=== PATIENT | female | born 1935 | race African-American/Black ===

== ENCOUNTER 2022-07-26 11:22 | Inpatient (IN) | payer MEDICARE ==
[~2022-07-26] VITALS: Ht 160 cm; Wt 61.0 kg
[2022-07-26] MEDS ORDERED: IOHEXOL 350 MG/ML 100 ML VIAL ONE (11:49)
[2022-07-26] MEDS ORDERED: SODIUM CHLORIDE 0.9% 100 ML ONE (11:49)
[2022-07-26 11:58] LABS: BASOPHILS % (AUTO) 0.3 % (0.0-2.0); EOSINOPHILS % (AUTO) 0.1 % (1.0-6.0); HEMATOCRIT 35.2 % (36-46); HEMOGLOBIN 11.9 g/dL (12.0-16.0); LYMPHOCYTES # (AUTO) 0.5 K/uL (1.0-4.8); LYMPHOCYTES % (AUTO) 7.2 % (22.0-44.0); MEAN CORPUSCULAR HEMOGLOBIN 31.9 pg (26.0-34.0); MEAN CORPUSCULAR HGB CONC 33.7 G/dL (31.0-37.0); MEAN CORPUSCULAR VOLUME 95 fL (80-100); MONOCYTES # (AUTO) 0.2 K/uL (0.1-1.0); MONOCYTES % (AUTO) 2.5 % (2.0-9.0); NEUTROPHILS # (AUTO) 6.3 K/uL (1.8-7.7); PLATELET COUNT (AUTO) 236 K/uL (150-450); RED BLOOD CELL COUNT(AUTO) 3.72 MIL/uL (4.00-5.20); RED CELL DISTRIBUTION WIDTH 14.1 % (11.5-14.5)
[2022-07-26 12:01] LABS: NEUTROPHILS % (AUTO) 89.9 % (40.0-70.0)
[2022-07-26 12:10] LABS: CALCIUM, TOTAL 9.6 mg/dL (8.8-10.5); CREATININE 0.94 mg/dL (0.60-1.30); POTASSIUM 3.7 mmol/L (3.5-5.1); PROTHROMBIN TIME 10.5 SEC (9.4-11.6)
[2022-07-26 12:16] LABS: ALBUMIN 3.8 g/dL (3.4-5.0); BILIRUBIN,TOTAL 0.3 mg/dL (0.1-1.0); TOTAL PROTEIN, SERUM 8.6 g/dL (6.4-8.2)
[2022-07-26] MEDS ORDERED: ASPIRIN 81 MG CHEWABLE TABLET PO ONE ×2 (12:45→14:30)
[2022-07-26 13:25] LABS: APPEARANCE,URINE CLEAR (CLEAR); BILIRUBIN,URINE NEGATIVE (NEGATIVE); GLUCOSE, URINE (UA) NEGATIVE (NEGATIVE); LEUKOCYTE ESTERASE ,URINE NEGATIVE (NEGATIVE); NITRATE,URINE NEGATIVE (NEGATIVE); OCCULT BLOOD,URINE NEGATIVE (NEGATIVE); PH,URINE 7.5 (5.0-8.0); PROTEIN,URINE TRACE mg/dL (NEGATIVE); SPECIFIC GRAVITIY, URINE 1.028 (1.003-1.030); UROBILINOGEN,URINE <=1.0 mg/dL (<=1.0)
[2022-07-26 13:52] LABS: AMPHET/METH SCREEN,URINE NEGATIVE (NEGATIVE); BARBITURATE SCREEN, URINE NEGATIVE (NEGATIVE); BENZODIAZEPINES SCREEN,URINE NEGATIVE (NEGATIVE); CANNABINOID SCREEN,URINE NEGATIVE (NEGATIVE); COCAINE SCREEN,URINE NEGATIVE (NEGATIVE); METHADONE SCREEN, URINE NEGATIVE (NEGATIVE); OPIATE SCREEN,URINE NEGATIVE (NEGATIVE); PHENCYCLIDINE SCREEN,URINE NEGATIVE (NEGATIVE)
[2022-07-26 13:56] LABS: BACTERIA,URINE None Seen /HPF (None Seen); RBC,URINE 0-2 /HPF (0-2); WBC,URINE None Seen /HPF (0-5)
[2022-07-26] MEDS ORDERED: ONDANSETRON HCL 4 MG/2 ML VIAL IVP PRN (14:30)
[2022-07-26] MEDS ORDERED: ACETAMINOPHEN 650 MG/ISO-OSM 65 ML IV ONE (14:30)
[2022-07-26] MEDS ORDERED: ACETAMINOPHEN 325 MG TABLET PO PRN (14:30)
[2022-07-26] MEDS ORDERED: MAGNESIUM HYDROXIDE SUSPENSION 30 ML UDCUP PO PRN (14:30)
[2022-07-26] MEDS ORDERED: ZOLPIDEM TARTRATE 5 MG TABLET PO PRN (14:30)
[2022-07-26] MEDS ORDERED: BISACODYL 10 MG RECTAL RECTAL SUPPOSITORY PR PRN (14:30)
[2022-07-26] MEDS ORDERED: ASPIRIN 300 MG RECTAL SUPPOSITORY PR ONE (15:00)
[2022-07-26] MEDS: LABETALOL HCL 5 MG/ML 20 ML VIAL IVP PRN ×2 (15:31→23:52)
[2022-07-26] MEDS: PIPERACILLIN SODIUM/TAZOBACTAM 2.25 GM in DEXTROSE 5%-WATER 50 ML IV SCH ×2 (16:54→21:54)
[2022-07-26] MEDS: HEPARIN SODIUM,PORCINE 5,000 UNITS/ML VIAL SQ SCH ×2 (17:01→23:47)
[2022-07-26] MEDS: NiCARDipine HCL 25 MG in SODIUM CHLORIDE 0.9% 240 ML IV PRN (20:19)
[2022-07-26] MEDS: ATORVASTATIN CALCIUM 20 MG TABLET PO SCH (21:00)
[2022-07-26] MEDS: DOCUSATE SODIUM 100 MG CAPSULE PO SCH (21:00)
[2022-07-26] MEDS ORDERED: ATORVASTATIN CALCIUM 20 MG TABLET PO SCH (21:00)
[2022-07-27] MEDS: NiCARDipine HCL 25 MG in SODIUM CHLORIDE 0.9% 240 ML IV PRN ×4 (00:41→16:06)
[2022-07-27] MEDS: PIPERACILLIN SODIUM/TAZOBACTAM 2.25 GM in DEXTROSE 5%-WATER 50 ML IV SCH ×4 (03:59→21:35)
[2022-07-27 07:30] LABS: COVID AG,FIA SOURCE NASAL SWAB
[2022-07-27] MEDS: HEPARIN SODIUM,PORCINE 5,000 UNITS/ML VIAL SQ SCH ×3 (07:37→23:50)
[2022-07-27] MEDS: ASPIRIN 81 MG CHEWABLE TABLET PO SCH (08:01)
[2022-07-27] MEDS: DOCUSATE SODIUM 100 MG CAPSULE PO SCH ×2 (08:01→20:16)
[2022-07-27] MEDS: PANTOPRAZOLE SODIUM 40 MG DR TABLET PO SCH (08:02)
[2022-07-27 08:40] LABS: BASOPHILS % (AUTO) 0.5 % (0.0-2.0); EOSINOPHILS % (AUTO) 0.1 % (1.0-6.0); HEMATOCRIT 35.1 % (36-46); LYMPHOCYTES # (AUTO) 1.2 K/uL (1.0-4.8); LYMPHOCYTES % (AUTO) 12.4 % (22.0-44.0); MEAN CORPUSCULAR HEMOGLOBIN 32.2 pg (26.0-34.0); MEAN CORPUSCULAR HGB CONC 34.1 G/dL (31.0-37.0); MEAN CORPUSCULAR VOLUME 94 fL (80-100); MONOCYTES # (AUTO) 0.6 K/uL (0.1-1.0); NEUTROPHILS # (AUTO) 7.9 K/uL (1.8-7.7); PLATELET COUNT (AUTO) 246 K/uL (150-450); RED BLOOD CELL COUNT(AUTO) 3.72 MIL/uL (4.00-5.20); RED CELL DISTRIBUTION WIDTH 14.2 % (11.5-14.5)
[2022-07-27] MEDS ORDERED: ATORVASTATIN CALCIUM 40 MG TABLET PO SCH ×2 (09:00)
[2022-07-27 09:10] LABS: CALCIUM, TOTAL 9.5 mg/dL (8.8-10.5); CHOL/HDL RATIO 3.2 (3.9-5.7); CREATININE 1.33 mg/dL (0.60-1.30); POTASSIUM 3.6 mmol/L (3.5-5.1); THYROID STIMULATING HORMONE 2.56 uIU/mL (0.36-3.74)
[2022-07-27] MEDS: ACETAMINOPHEN 650 MG RECTAL SUPPOSITORY PR PRN ×2 (11:15→20:13)
[2022-07-27] MEDS ORDERED: DEXTROSE 5%-0.45% SODIUM CHL 1,000 ML IV ONE (18:30)
[2022-07-27] MEDS: ATORVASTATIN CALCIUM 20 MG TABLET PO SCH (20:16)
[2022-07-27] MEDS: MORPHINE SULFATE 2 MG/ML SYRINGE IVP PRN (21:35)
[2022-07-28] MEDS: PIPERACILLIN SODIUM/TAZOBACTAM 2.25 GM in DEXTROSE 5%-WATER 50 ML IV SCH ×4 (03:13→21:46)
[2022-07-28] MEDS: LABETALOL HCL 5 MG/ML 20 ML VIAL IVP PRN (06:58)
[2022-07-28] MEDS: ASPIRIN 81 MG CHEWABLE TABLET PO SCH (08:46)
[2022-07-28] MEDS: DOCUSATE SODIUM 100 MG CAPSULE PO SCH ×2 (08:46→19:06)
[2022-07-28] MEDS: PANTOPRAZOLE SODIUM 40 MG DR TABLET PO SCH (08:46)
[2022-07-28] MEDS: HEPARIN SODIUM,PORCINE 5,000 UNITS/ML VIAL SQ SCH ×3 (08:56→23:51)
[2022-07-28] MEDS: NiCARDipine HCL 25 MG in SODIUM CHLORIDE 0.9% 240 ML IV PRN ×3 (15:42→23:51)
[2022-07-28] MEDS: ATORVASTATIN CALCIUM 20 MG TABLET PO SCH (19:06)
[2022-07-28 23:15] VITALS: BP 142/62
[2022-07-28] MEDS ORDERED: SODIUM CHLORIDE 0.9% 250 ML IV ONE (23:49)
[2022-07-29 04:00] VITALS: BP 155/68
[2022-07-29] MEDS: NiCARDipine HCL 25 MG in SODIUM CHLORIDE 0.9% 240 ML IV PRN ×2 (04:29→09:15)
[2022-07-29] MEDS: PIPERACILLIN SODIUM/TAZOBACTAM 2.25 GM in DEXTROSE 5%-WATER 50 ML IV SCH ×4 (04:29→21:24)
[2022-07-29 06:52] LABS: ALANINE AMINOTRANSFERASE 47 U/L (12-78); ALBUMIN 2.9 g/dL (3.4-5.0); ALKALINE PHOSPHATASE 72 U/L (46-116); ANION GAP 10 mmol/L (8-16); ASPARTATE AMINOTRANSFERASE 140 U/L (15-37); BILIRUBIN,TOTAL 0.5 mg/dL (0.1-1.0); CALCIUM, TOTAL 8.9 mg/dL (8.8-10.5); CARBON DIOXIDE 23 mmol/L (22-29); CHLORIDE 109 mmol/L (98-107); CREATININE 0.96 mg/dL (0.60-1.30); GLOMERULAR FILTR. RATE CALC > 60 mL/min (>60); GLUCOSE,RANDOM 91 mg/dL (70-110); SODIUM SERUM 142 mmol/L (136-145); TOTAL PROTEIN, SERUM 7.1 g/dL (6.4-8.2); UREA NITROGEN, BLOOD 21 mg/dL (7-18)
[2022-07-29 07:00] LABS: BASOPHILS % (AUTO) 0.3 % (0.0-2.0); EOSINOPHILS % (AUTO) 0.2 % (1.0-6.0); HEMATOCRIT 32.9 % (36-46); LYMPHOCYTES # (AUTO) 1.1 K/uL (1.0-4.8); LYMPHOCYTES % (AUTO) 10.9 % (22.0-44.0); MEAN CORPUSCULAR HEMOGLOBIN 31.9 pg (26.0-34.0); MEAN CORPUSCULAR HGB CONC 33.4 G/dL (31.0-37.0); MEAN CORPUSCULAR VOLUME 96 fL (80-100); MONOCYTES # (AUTO) 0.7 K/uL (0.1-1.0); MONOCYTES % (AUTO) 6.9 % (2.0-9.0); NEUTROPHILS # (AUTO) 8.3 K/uL (1.8-7.7); NEUTROPHILS % (AUTO) 81.7 % (40.0-70.0); PLATELET COUNT (AUTO) 237 K/uL (150-450); RED BLOOD CELL COUNT(AUTO) 3.44 MIL/uL (4.00-5.20); RED CELL DISTRIBUTION WIDTH 14.2 % (11.5-14.5)
[2022-07-29 07:24] LABS: POTASSIUM 2.7 mmol/L (3.5-5.1)
[2022-07-29 08:00] VITALS: BP 164/72
[2022-07-29] MEDS ORDERED: POTASSIUM CHLORIDE 20 MEQ ER TABLET PO PRN (08:00)
[2022-07-29] MEDS: HEPARIN SODIUM,PORCINE 5,000 UNITS/ML VIAL SQ SCH ×3 (08:04→23:53)
[2022-07-29] MEDS: POTASSIUM CHL 10 MEQ/WATER 50 ML IV PRN ×4 (08:05→13:55)
[2022-07-29] MEDS: PANTOPRAZOLE SODIUM 40 MG/VIAL IVP SCH (09:14)
[2022-07-29] MEDS: LABETALOL HCL 5 MG/ML 20 ML VIAL IVP PRN (09:15)
[2022-07-29] MEDS: ASPIRIN 81 MG CHEWABLE TABLET PO SCH (10:18)
[2022-07-29] MEDS: AmLODIPine BESYLATE 10 MG TABLET PO SCH (10:18)
[2022-07-29] MEDS: DOCUSATE SODIUM 100 MG CAPSULE PO SCH ×2 (10:18→20:51)
[2022-07-29] MEDS: HydrALAZINE HCL 20 MG/ML VIAL IVP PRN ×2 (10:19→17:55)
[2022-07-29] MEDS: CARVEDILOL 3.125 MG TABLET PO SCH ×2 (10:19→20:51)
[2022-07-29 12:00] VITALS: BP 161/89
[2022-07-29 16:00] VITALS: BP 168/66
[2022-07-29] MEDS ORDERED: POTASSIUM CHLORIDE 10% 40 MEQ/30 ML LIQUID UDCUP NG PRN (17:15)
[2022-07-29 20:00] VITALS: BP 147/40
[2022-07-29] MEDS: ATORVASTATIN CALCIUM 20 MG TABLET PO SCH (20:51)
[2022-07-29] MEDS ORDERED: SODIUM CHLORIDE 0.9% 250 ML IV ONE (23:19)
[2022-07-30] VITALS: BP 150/62
[2022-07-30 04:00] VITALS: BP 173/57
[2022-07-30] MEDS: PIPERACILLIN SODIUM/TAZOBACTAM 2.25 GM in DEXTROSE 5%-WATER 50 ML IV SCH ×4 (04:07→22:26)
[2022-07-30] MEDS: HydrALAZINE HCL 20 MG/ML VIAL IVP PRN ×3 (04:07→14:17)
[2022-07-30 05:53] LABS: BASOPHILS % (AUTO) 0.4 % (0.0-2.0); EOSINOPHILS % (AUTO) 0.4 % (1.0-6.0); HEMATOCRIT 33.2 % (36-46); LYMPHOCYTES # (AUTO) 1.6 K/uL (1.0-4.8); LYMPHOCYTES % (AUTO) 12.5 % (22.0-44.0); MEAN CORPUSCULAR HEMOGLOBIN 31.6 pg (26.0-34.0); MEAN CORPUSCULAR HGB CONC 33.1 G/dL (31.0-37.0); MEAN CORPUSCULAR VOLUME 96 fL (80-100); MONOCYTES # (AUTO) 0.8 K/uL (0.1-1.0); MONOCYTES % (AUTO) 6.3 % (2.0-9.0); NEUTROPHILS # (AUTO) 10.2 K/uL (1.8-7.7); NEUTROPHILS % (AUTO) 80.4 % (40.0-70.0); PLATELET COUNT (AUTO) 244 K/uL (150-450); RED BLOOD CELL COUNT(AUTO) 3.47 MIL/uL (4.00-5.20); RED CELL DISTRIBUTION WIDTH 14.2 % (11.5-14.5)
[2022-07-30 05:57] LABS: CALCIUM, TOTAL 9.1 mg/dL (8.8-10.5); CREATININE 1.05 mg/dL (0.60-1.30); MAGNESIUM 2.5 mg/dL (1.80-2.40); PHOSPHORUS 2.3 mg/dL (2.5-4.9); POTASSIUM 3.6 mmol/L (3.5-5.1)
[2022-07-30 08:00] VITALS: BP 171/65
[2022-07-30] MEDS: ASPIRIN 81 MG CHEWABLE TABLET PO SCH (08:17)
[2022-07-30] MEDS: AmLODIPine BESYLATE 10 MG TABLET PO SCH (08:18)
[2022-07-30] MEDS: PANTOPRAZOLE SODIUM 40 MG/VIAL IVP SCH (08:18)
[2022-07-30] MEDS: CARVEDILOL 3.125 MG TABLET PO SCH ×2 (08:18→20:27)
[2022-07-30] MEDS: HEPARIN SODIUM,PORCINE 5,000 UNITS/ML VIAL SQ SCH ×3 (08:18→23:51)
[2022-07-30] MEDS: DOCUSATE SODIUM 100 MG CAPSULE PO SCH ×2 (08:18→20:27)
[2022-07-30 12:00] VITALS: BP 169/68
[2022-07-30] MEDS: LABETALOL HCL 5 MG/ML 20 ML VIAL IVP PRN (15:27)
[2022-07-30 16:00] VITALS: BP 173/65
[2022-07-30] MEDS: NiCARDipine HCL 25 MG in SODIUM CHLORIDE 0.9% 240 ML IV PRN ×3 (16:22→23:52)
[2022-07-30 20:00] VITALS: BP 143/71
[2022-07-30] MEDS: ATORVASTATIN CALCIUM 20 MG TABLET PO SCH (20:27)
[2022-07-30] MEDS ORDERED: AmLODIPine BESYLATE 5 MG TABLET PO SCH (21:00)
[2022-07-31] VITALS: BP 146/79
[2022-07-31 04:00] VITALS: BP 133/61
[2022-07-31] MEDS: PIPERACILLIN SODIUM/TAZOBACTAM 2.25 GM in DEXTROSE 5%-WATER 50 ML IV SCH ×4 (04:31→21:25)
[2022-07-31] MEDS: NiCARDipine HCL 25 MG in SODIUM CHLORIDE 0.9% 240 ML IV PRN ×4 (04:33→22:56)
[2022-07-31 06:17] LABS: BASOPHILS % (AUTO) 0.2 % (0.0-2.0); EOSINOPHILS % (AUTO) 0.3 % (1.0-6.0); HEMATOCRIT 32.1 % (36-46); HEMOGLOBIN 10.6 g/dL (12.0-16.0); LYMPHOCYTES # (AUTO) 1.1 K/uL (1.0-4.8); LYMPHOCYTES % (AUTO) 10.2 % (22.0-44.0); MEAN CORPUSCULAR HEMOGLOBIN 31.8 pg (26.0-34.0); MEAN CORPUSCULAR HGB CONC 33.1 G/dL (31.0-37.0); MEAN CORPUSCULAR VOLUME 96 fL (80-100); MONOCYTES # (AUTO) 0.7 K/uL (0.1-1.0); MONOCYTES % (AUTO) 6.6 % (2.0-9.0); NEUTROPHILS # (AUTO) 9.2 K/uL (1.8-7.7); NEUTROPHILS % (AUTO) 82.7 % (40.0-70.0); PLATELET COUNT (AUTO) 263 K/uL (150-450); RED BLOOD CELL COUNT(AUTO) 3.35 MIL/uL (4.00-5.20); RED CELL DISTRIBUTION WIDTH 14.5 % (11.5-14.5)
[2022-07-31 06:32] LABS: ALBUMIN 2.6 g/dL (3.4-5.0); BILIRUBIN,TOTAL 0.4 mg/dL (0.1-1.0); CALCIUM, TOTAL 9.1 mg/dL (8.8-10.5); CREATININE 1.18 mg/dL (0.60-1.30); POTASSIUM 3.4 mmol/L (3.5-5.1)
[2022-07-31 08:00] VITALS: BP 154/65
[2022-07-31] MEDS: AmLODIPine BESYLATE 5 MG TABLET PO SCH ×2 (08:14→20:26)
[2022-07-31] MEDS: PANTOPRAZOLE SODIUM 40 MG/VIAL IVP SCH (08:14)
[2022-07-31] MEDS: DOCUSATE SODIUM 100 MG CAPSULE PO SCH ×2 (08:14→20:23)
[2022-07-31] MEDS: ASPIRIN 81 MG CHEWABLE TABLET PO SCH (08:14)
[2022-07-31] MEDS: HEPARIN SODIUM,PORCINE 5,000 UNITS/ML VIAL SQ SCH ×2 (08:14→15:29)
[2022-07-31] MEDS: CARVEDILOL 3.125 MG TABLET PO SCH ×2 (08:14→20:23)
[2022-07-31 12:00] VITALS: BP 150/65
[2022-07-31] MEDS ORDERED: DEXTROSE 5%-WATER 500 ML IV ONE (12:30)
[2022-07-31] MEDS ORDERED: POTASSIUM CHLORIDE 10% 40 MEQ/30 ML LIQUID UDCUP NG ONE (12:45)
[2022-07-31] MEDS: HydrALAZINE HCL 20 MG/ML VIAL IVP PRN (13:08)
[2022-07-31] MEDS: HydrALAZINE HCL 25 MG TABLET PO SCH (15:29)
[2022-07-31 16:00] VITALS: BP 151/70
[2022-07-31 20:00] VITALS: BP 155/82
[2022-07-31] MEDS: ATORVASTATIN CALCIUM 20 MG TABLET PO SCH (20:23)
[2022-08-01] VITALS: BP 150/63
[2022-08-01] MEDS: HEPARIN SODIUM,PORCINE 5,000 UNITS/ML VIAL SQ SCH ×4 (00:39→23:32)
[2022-08-01] MEDS: HydrALAZINE HCL 25 MG TABLET PO SCH ×4 (00:39→23:32)
[2022-08-01] MEDS: PIPERACILLIN SODIUM/TAZOBACTAM 2.25 GM in DEXTROSE 5%-WATER 50 ML IV SCH ×4 (03:50→21:03)
[2022-08-01 04:00] VITALS: BP 134/63
[2022-08-01 06:43] LABS: BASOPHILS % (AUTO) 0.4 % (0.0-2.0); EOSINOPHILS % (AUTO) 1.2 % (1.0-6.0); HEMATOCRIT 32.2 % (36-46); LYMPHOCYTES # (AUTO) 0.9 K/uL (1.0-4.8); LYMPHOCYTES % (AUTO) 8.7 % (22.0-44.0); MEAN CORPUSCULAR HEMOGLOBIN 32.6 pg (26.0-34.0); MEAN CORPUSCULAR VOLUME 96 fL (80-100); MONOCYTES # (AUTO) 0.8 K/uL (0.1-1.0); MONOCYTES % (AUTO) 7.4 % (2.0-9.0); NEUTROPHILS # (AUTO) 8.7 K/uL (1.8-7.7); NEUTROPHILS % (AUTO) 82.3 % (40.0-70.0); PLATELET COUNT (AUTO) 262 K/uL (150-450); RED BLOOD CELL COUNT(AUTO) 3.36 MIL/uL (4.00-5.20); RED CELL DISTRIBUTION WIDTH 14.8 % (11.5-14.5)
[2022-08-01 06:46] LABS: CREATININE 1.09 mg/dL (0.60-1.30); POTASSIUM 3.7 mmol/L (3.5-5.1)
[2022-08-01 08:00] VITALS: BP 160/75
[2022-08-01] MEDS: AmLODIPine BESYLATE 5 MG TABLET PO SCH ×2 (08:34→21:02)
[2022-08-01] MEDS: DOCUSATE SODIUM 100 MG CAPSULE PO SCH (08:34)
[2022-08-01] MEDS: ASPIRIN 81 MG CHEWABLE TABLET PO SCH (08:34)
[2022-08-01] MEDS: PANTOPRAZOLE SODIUM 40 MG/VIAL IVP SCH (08:34)
[2022-08-01] MEDS: HydrALAZINE HCL 20 MG/ML VIAL IVP PRN (08:35)
[2022-08-01] MEDS: CARVEDILOL 3.125 MG TABLET PO SCH ×2 (08:35→21:02)
[2022-08-01] MEDS ORDERED: SODIUM CHLORIDE 0.9% 250 ML IV ONE (10:03)
[2022-08-01] MEDS: NiCARDipine HCL 25 MG in SODIUM CHLORIDE 0.9% 240 ML IV PRN (10:53)
[2022-08-01 12:00] VITALS: BP 159/73
[2022-08-01 16:00] VITALS: BP 143/74
[2022-08-01 20:00] VITALS: BP 154/69
[2022-08-01] MEDS: DOCUSATE SODIUM 100 MG/10 ML LIQUID UDCUP NG SCH (21:02)
[2022-08-01] MEDS: ATORVASTATIN CALCIUM 20 MG TABLET PO SCH (21:02)
[2022-08-02] VITALS: BP 151/62
[2022-08-02] MEDS: HydrALAZINE HCL 20 MG/ML VIAL IVP PRN ×3 (02:11→12:00)
[2022-08-02] MEDS: LABETALOL HCL 5 MG/ML 20 ML VIAL IVP PRN ×2 (03:40→14:47)
[2022-08-02] MEDS: PIPERACILLIN SODIUM/TAZOBACTAM 2.25 GM in DEXTROSE 5%-WATER 50 ML IV SCH ×4 (03:41→21:15)
[2022-08-02 04:00] VITALS: BP 147/61
[2022-08-02 08:00] VITALS: BP 167/83
[2022-08-02 08:35] LABS: BASOPHILS % (AUTO) 0.6 % (0.0-2.0); EOSINOPHILS % (AUTO) 2.4 % (1.0-6.0); HEMATOCRIT 34.3 % (36-46); HEMOGLOBIN 11.5 g/dL (12.0-16.0); LYMPHOCYTES # (AUTO) 1.3 K/uL (1.0-4.8); LYMPHOCYTES % (AUTO) 11.4 % (22.0-44.0); MEAN CORPUSCULAR HEMOGLOBIN 32.2 pg (26.0-34.0); MEAN CORPUSCULAR HGB CONC 33.5 G/dL (31.0-37.0); MEAN CORPUSCULAR VOLUME 96 fL (80-100); MONOCYTES # (AUTO) 0.7 K/uL (0.1-1.0); MONOCYTES % (AUTO) 6.3 % (2.0-9.0); NEUTROPHILS # (AUTO) 8.8 K/uL (1.8-7.7); NEUTROPHILS % (AUTO) 79.3 % (40.0-70.0); PLATELET COUNT (AUTO) 280 K/uL (150-450); RED BLOOD CELL COUNT(AUTO) 3.57 MIL/uL (4.00-5.20); RED CELL DISTRIBUTION WIDTH 14.7 % (11.5-14.5)
[2022-08-02 08:46] LABS: CALCIUM, TOTAL 9.1 mg/dL (8.8-10.5); CREATININE 1.07 mg/dL (0.60-1.30); POTASSIUM 3.7 mmol/L (3.5-5.1)
[2022-08-02] MEDS: CARVEDILOL 3.125 MG TABLET PO SCH ×2 (09:15→21:15)
[2022-08-02] MEDS: PANTOPRAZOLE SODIUM 40 MG/VIAL IVP SCH (09:15)
[2022-08-02] MEDS: DOCUSATE SODIUM 100 MG/10 ML LIQUID UDCUP NG SCH ×2 (09:15→21:14)
[2022-08-02] MEDS: HEPARIN SODIUM,PORCINE 5,000 UNITS/ML VIAL SQ SCH ×3 (09:15→23:20)
[2022-08-02] MEDS: HydrALAZINE HCL 25 MG TABLET PO SCH ×3 (09:15→23:48)
[2022-08-02] MEDS: AmLODIPine BESYLATE 5 MG TABLET PO SCH ×2 (09:16→21:14)
[2022-08-02] MEDS: ASPIRIN 81 MG CHEWABLE TABLET PO SCH (09:16)
[2022-08-02 12:00] VITALS: BP 156/72
[2022-08-02 16:00] VITALS: BP 174/79
[2022-08-02 20:39] VITALS: BP 163/75
[2022-08-02] MEDS ORDERED: SODIUM CHLORIDE 0.9% 500 ML IV ONE (21:02)
[2022-08-02] MEDS: ATORVASTATIN CALCIUM 20 MG TABLET PO SCH (21:15)
[2022-08-02] MEDS ORDERED: HALOPERIDOL LACTATE 5 MG/ML VIAL IM ONE (23:15)
[2022-08-03 00:55] VITALS: BP 156/78
[2022-08-03] MEDS: PIPERACILLIN SODIUM/TAZOBACTAM 2.25 GM in DEXTROSE 5%-WATER 50 ML IV SCH ×4 (04:35→21:03)
[2022-08-03 05:00] VITALS: BP 164/62
[2022-08-03 07:01] LABS: BASOPHILS % (AUTO) 0.1 % (0.0-2.0); HEMATOCRIT 30.1 % (36-46); HEMOGLOBIN 10.1 g/dL (12.0-16.0); LYMPHOCYTES # (AUTO) 0.9 K/uL (1.0-4.8); MEAN CORPUSCULAR HEMOGLOBIN 32.4 pg (26.0-34.0); MEAN CORPUSCULAR HGB CONC 33.6 G/dL (31.0-37.0); MEAN CORPUSCULAR VOLUME 97 fL (80-100); MONOCYTES # (AUTO) 0.8 K/uL (0.1-1.0); MONOCYTES % (AUTO) 6.7 % (2.0-9.0); NEUTROPHILS # (AUTO) 9.8 K/uL (1.8-7.7); NEUTROPHILS % (AUTO) 84.2 % (40.0-70.0); PLATELET COUNT (AUTO) 231 K/uL (150-450); RED BLOOD CELL COUNT(AUTO) 3.12 MIL/uL (4.00-5.20); RED CELL DISTRIBUTION WIDTH 14.7 % (11.5-14.5)
[2022-08-03 07:03] LABS: CALCIUM, TOTAL 8.7 mg/dL (8.8-10.5); CREATININE 1.11 mg/dL (0.60-1.30); POTASSIUM 3.5 mmol/L (3.5-5.1)
[2022-08-03] MEDS: HYDROCODONE/ACETAMINOPHEN 5-325 MG TABLET PO PRN (10:13)
[2022-08-03] MEDS: HEPARIN SODIUM,PORCINE 5,000 UNITS/ML VIAL SQ SCH ×2 (10:13→16:00)
[2022-08-03] MEDS: DOCUSATE SODIUM 100 MG/10 ML LIQUID UDCUP NG SCH ×2 (10:14→21:04)
[2022-08-03] MEDS: ASPIRIN 81 MG CHEWABLE TABLET PO SCH (10:14)
[2022-08-03] MEDS: AmLODIPine BESYLATE 5 MG TABLET PO SCH ×2 (10:14→21:04)
[2022-08-03] MEDS: CARVEDILOL 3.125 MG TABLET PO SCH ×2 (10:14→21:04)
[2022-08-03] MEDS: HydrALAZINE HCL 25 MG TABLET PO SCH ×2 (10:15→16:22)
[2022-08-03] MEDS: PANTOPRAZOLE SODIUM 40 MG/VIAL IVP SCH (10:15)
[2022-08-03 10:51] VITALS: BP 144/60
[2022-08-03 15:44] VITALS: BP 147/72
[2022-08-03 20:19] VITALS: BP 167/77
[2022-08-03] MEDS: ATORVASTATIN CALCIUM 20 MG TABLET PO SCH (21:04)
[2022-08-04 00:25] VITALS: BP 165/85
[2022-08-04] MEDS: HydrALAZINE HCL 25 MG TABLET PO SCH ×4 (01:24→23:43)
[2022-08-04] MEDS: HEPARIN SODIUM,PORCINE 5,000 UNITS/ML VIAL SQ SCH ×4 (01:24→23:43)
[2022-08-04] MEDS: PIPERACILLIN SODIUM/TAZOBACTAM 2.25 GM in DEXTROSE 5%-WATER 50 ML IV SCH ×4 (04:51→23:06)
[2022-08-04 05:00] VITALS: BP 172/78
[2022-08-04] MEDS: HydrALAZINE HCL 20 MG/ML VIAL IVP PRN (06:14)
[2022-08-04 07:42] VITALS: BP 172/72
[2022-08-04] MEDS: DOCUSATE SODIUM 100 MG/10 ML LIQUID UDCUP NG SCH ×2 (08:10→23:20)
[2022-08-04] MEDS: PANTOPRAZOLE SODIUM 40 MG/VIAL IVP SCH (08:11)
[2022-08-04] MEDS: ASPIRIN 81 MG CHEWABLE TABLET PO SCH (08:11)
[2022-08-04] MEDS: HYDROCODONE/ACETAMINOPHEN 5-325 MG TABLET PO PRN (08:11)
[2022-08-04] MEDS: AmLODIPine BESYLATE 5 MG TABLET PO SCH ×2 (08:11→23:20)
[2022-08-04] MEDS: CARVEDILOL 3.125 MG TABLET PO SCH ×2 (08:12→23:20)
[2022-08-04] MEDS ORDERED: DEXTROSE 50%-WATER 25 GM/50 ML SYRINGE IVP PRN (10:45)
[2022-08-04 11:07] VITALS: BP 140/62
[2022-08-04 16:06] VITALS: BP 156/66
[2022-08-04] MEDS: INSULIN LISPRO 100 UNITS/ML SQ PRN (17:17)
[2022-08-04 20:00] VITALS: BP 145/97
[2022-08-04 23:16] LABS: GLUCOMETER DEV NAME(LOC) 5N.1C; GLUCOSE,POINT OF CARE 126 MG/DL (70-110)
[2022-08-04] MEDS: ATORVASTATIN CALCIUM 20 MG TABLET PO SCH (23:20)
[2022-08-05] VITALS: BP 130/90
[2022-08-05 04:00] VITALS: BP 141/101
[2022-08-05] MEDS: PIPERACILLIN SODIUM/TAZOBACTAM 2.25 GM in DEXTROSE 5%-WATER 50 ML IV SCH ×2 (05:06→08:51)
[2022-08-05 05:26] LABS: GLUCOMETER DEV NAME(LOC) 5S.2C; GLUCOSE,POINT OF CARE 109 MG/DL (70-110)
[2022-08-05 05:26] LABS: GLUCOMETER DEV NAME(LOC) 5S.2C; GLUCOSE,POINT OF CARE 144 MG/DL (70-110)
[2022-08-05] MEDS: HydrALAZINE HCL 20 MG/ML VIAL IVP PRN (05:36)
[2022-08-05 07:38] VITALS: BP 152/62
[2022-08-05 08:26] LABS: GLUCOMETER DEV NAME(LOC) 5S.2C; GLUCOSE,POINT OF CARE 120 MG/DL (70-110)
[2022-08-05] MEDS: PANTOPRAZOLE SODIUM 40 MG/VIAL IVP SCH (08:52)
[2022-08-05] MEDS: HEPARIN SODIUM,PORCINE 5,000 UNITS/ML VIAL SQ SCH ×3 (08:52→23:52)
[2022-08-05] MEDS: CARVEDILOL 3.125 MG TABLET PO SCH ×2 (08:53→20:51)
[2022-08-05] MEDS: HydrALAZINE HCL 25 MG TABLET PO SCH ×2 (08:53→15:54)
[2022-08-05] MEDS: AmLODIPine BESYLATE 5 MG TABLET PO SCH ×2 (08:53→20:51)
[2022-08-05] MEDS: DOCUSATE SODIUM 100 MG/10 ML LIQUID UDCUP NG SCH ×2 (08:53→20:51)
[2022-08-05] MEDS: ASPIRIN 81 MG CHEWABLE TABLET PO SCH (08:53)
[2022-08-05] MEDS: NYSTATIN 15 GM POWDER BOTTLE TP SCH (08:54)
[2022-08-05 11:29] VITALS: BP 136/66
[2022-08-05] MEDS: INSULIN LISPRO 100 UNITS/ML SQ PRN (11:46)
[2022-08-05] MEDS: HYDROCODONE/ACETAMINOPHEN 5-325 MG TABLET PO PRN (15:54)
[2022-08-05 16:00] VITALS: BP 150/70
[2022-08-05] MEDS ORDERED: SODIUM CHLORIDE 0.9% 500 ML IV ONE (20:07)
[2022-08-05 20:31] VITALS: BP 151/56
[2022-08-05] MEDS: ATORVASTATIN CALCIUM 20 MG TABLET PO SCH (20:51)
[2022-08-05 22:06] LABS: GLUCOMETER DEV NAME(LOC) 5N.1C; GLUCOSE,POINT OF CARE 103 MG/DL (70-110)
[2022-08-05 22:06] LABS: GLUCOMETER DEV NAME(LOC) 5N.1C; GLUCOSE,POINT OF CARE 142 MG/DL (70-110)
[2022-08-06 00:12] VITALS: BP 139/81
[2022-08-06 04:55] VITALS: BP 112/76
[2022-08-06 06:46] LABS: BASOPHILS % (AUTO) 0.6 % (0.0-2.0); EOSINOPHILS % (AUTO) 1.9 % (1.0-6.0); HEMATOCRIT 31.7 % (36-46); HEMOGLOBIN 10.8 g/dL (12.0-16.0); LYMPHOCYTES # (AUTO) 1.5 K/uL (1.0-4.8); LYMPHOCYTES % (AUTO) 12.8 % (22.0-44.0); MEAN CORPUSCULAR HEMOGLOBIN 32.4 pg (26.0-34.0); MEAN CORPUSCULAR HGB CONC 33.9 G/dL (31.0-37.0); MEAN CORPUSCULAR VOLUME 96 fL (80-100); MONOCYTES # (AUTO) 0.8 K/uL (0.1-1.0); NEUTROPHILS # (AUTO) 9.4 K/uL (1.8-7.7); NEUTROPHILS % (AUTO) 77.7 % (40.0-70.0); PLATELET COUNT (AUTO) 257 K/uL (150-450); RED BLOOD CELL COUNT(AUTO) 3.32 MIL/uL (4.00-5.20); RED CELL DISTRIBUTION WIDTH 14.5 % (11.5-14.5)
[2022-08-06 06:51] LABS: ANION GAP 6 mmol/L (8-16); CALCIUM, TOTAL 8.8 mg/dL (8.8-10.5); CARBON DIOXIDE 26 mmol/L (22-29); CHLORIDE 112 mmol/L (98-107); CREATININE 0.92 mg/dL (0.60-1.30); GLOMERULAR FILTR. RATE CALC > 60 mL/min (>60); GLUCOSE,RANDOM 133 mg/dL (70-110); POTASSIUM 4.2 mmol/L (3.5-5.1); SODIUM SERUM 144 mmol/L (136-145); UREA NITROGEN, BLOOD 22 mg/dL (7-18)
[2022-08-06 07:18] VITALS: BP 114/81
[2022-08-06] MEDS: DOCUSATE SODIUM 100 MG/10 ML LIQUID UDCUP NG SCH ×2 (08:22→20:04)
[2022-08-06] MEDS: PANTOPRAZOLE SODIUM 40 MG/VIAL IVP SCH (08:22)
[2022-08-06] MEDS: HEPARIN SODIUM,PORCINE 5,000 UNITS/ML VIAL SQ SCH ×3 (08:22→23:56)
[2022-08-06] MEDS: CARVEDILOL 3.125 MG TABLET PO SCH ×2 (08:22→20:04)
[2022-08-06] MEDS: ASPIRIN 81 MG CHEWABLE TABLET PO SCH (08:22)
[2022-08-06] MEDS: AmLODIPine BESYLATE 5 MG TABLET PO SCH ×2 (08:22→20:04)
[2022-08-06] MEDS: HydrALAZINE HCL 25 MG TABLET PO SCH ×4 (08:22→23:56)
[2022-08-06] MEDS: NYSTATIN 15 GM POWDER BOTTLE TP SCH (08:23)
[2022-08-06 10:22] LABS: GLUCOMETER DEV NAME(LOC) 5S.2C; GLUCOSE,POINT OF CARE 134 MG/DL (70-110)
[2022-08-06 10:22] LABS: GLUCOMETER DEV NAME(LOC) 5N.1C; GLUCOSE,POINT OF CARE 118 MG/DL (70-110)
[2022-08-06 11:29] VITALS: BP 151/65
[2022-08-06 12:36] LABS: GLUCOMETER DEV NAME(LOC) 5S.2C; GLUCOSE,POINT OF CARE 115 MG/DL (70-110)
[2022-08-06] MEDS: ATORVASTATIN CALCIUM 20 MG TABLET PO SCH (20:04)
[2022-08-06 20:09] VITALS: BP 157/77
[2022-08-07 00:32] VITALS: BP 160/77
[2022-08-07 05:10] VITALS: BP 153/79
[2022-08-07 05:21] LABS: GLUCOMETER DEV NAME(LOC) 5S.2C; GLUCOSE,POINT OF CARE 121 MG/DL (70-110)
[2022-08-07 05:21] LABS: GLUCOMETER DEV NAME(LOC) 5S.2C; GLUCOSE,POINT OF CARE 129 MG/DL (70-110)
[2022-08-07 07:27] VITALS: BP 172/69
[2022-08-07 07:31] LABS: GLUCOMETER DEV NAME(LOC) 5N.1C; GLUCOSE,POINT OF CARE 114 MG/DL (70-110)
[2022-08-07] MEDS: DOCUSATE SODIUM 100 MG/10 ML LIQUID UDCUP NG SCH ×2 (08:00→20:01)
[2022-08-07] MEDS: HEPARIN SODIUM,PORCINE 5,000 UNITS/ML VIAL SQ SCH ×2 (08:00→17:58)
[2022-08-07] MEDS: AmLODIPine BESYLATE 5 MG TABLET PO SCH ×2 (08:01→20:01)
[2022-08-07] MEDS: CARVEDILOL 3.125 MG TABLET PO SCH ×2 (08:01→20:01)
[2022-08-07] MEDS: HydrALAZINE HCL 25 MG TABLET PO SCH ×2 (08:01→17:58)
[2022-08-07] MEDS: ASPIRIN 81 MG CHEWABLE TABLET PO SCH (08:01)
[2022-08-07] MEDS: NYSTATIN 15 GM POWDER BOTTLE TP SCH (08:02)
[2022-08-07] MEDS: PANTOPRAZOLE SODIUM 40 MG/VIAL IVP SCH (08:02)
[2022-08-07 11:53] VITALS: BP 157/77
[2022-08-07 12:31] LABS: GLUCOMETER DEV NAME(LOC) 5S.2C; GLUCOSE,POINT OF CARE 79 MG/DL (70-110)
[2022-08-07 16:55] VITALS: BP 154/74
[2022-08-07] MEDS: ATORVASTATIN CALCIUM 20 MG TABLET PO SCH (20:01)
[2022-08-07 20:02] VITALS: BP 138/59
[2022-08-07 20:06] LABS: GLUCOMETER DEV NAME(LOC) 5S.2C; GLUCOSE,POINT OF CARE 102 MG/DL (70-110)
[2022-08-08] VITALS (7 sets, daily range): BP systolic 123–171; BP diastolic 60–82
[2022-08-08] MEDS: HEPARIN SODIUM,PORCINE 5,000 UNITS/ML VIAL SQ SCH ×4 (00:07→23:01)
[2022-08-08] MEDS: HydrALAZINE HCL 25 MG TABLET PO SCH ×4 (00:39→23:01)
[2022-08-08 07:46] LABS: GLUCOMETER DEV NAME(LOC) 5N.1C; GLUCOSE,POINT OF CARE 114 MG/DL (70-110)
[2022-08-08] MEDS: HYDROCODONE/ACETAMINOPHEN 5-325 MG TABLET PO PRN ×3 (08:06→17:09)
[2022-08-08] MEDS: ASPIRIN 81 MG CHEWABLE TABLET PO SCH (08:07)
[2022-08-08] MEDS: PANTOPRAZOLE SODIUM 40 MG/VIAL IVP SCH (08:07)
[2022-08-08] MEDS: DOCUSATE SODIUM 100 MG/10 ML LIQUID UDCUP NG SCH ×2 (08:07→23:01)
[2022-08-08] MEDS: NYSTATIN 15 GM POWDER BOTTLE TP SCH (08:07)
[2022-08-08] MEDS: AmLODIPine BESYLATE 5 MG TABLET PO SCH ×2 (08:07→23:01)
[2022-08-08] MEDS: CARVEDILOL 3.125 MG TABLET PO SCH ×2 (08:07→23:01)
[2022-08-08] MEDS: MORPHINE SULFATE 2 MG/ML SYRINGE IVP PRN (08:48)
[2022-08-08 11:56] LABS: GLUCOMETER DEV NAME(LOC) 5N.1C; GLUCOSE,POINT OF CARE 90 MG/DL (70-110)
[2022-08-08 22:37] LABS: GLUCOMETER DEV NAME(LOC) 5N.1C; GLUCOSE,POINT OF CARE 104 MG/DL (70-110)
[2022-08-08] MEDS: ATORVASTATIN CALCIUM 20 MG TABLET PO SCH (23:01)
[2022-08-09] VITALS (8 sets, daily range): BP systolic 117–150; BP diastolic 62–85
[2022-08-09 03:46] LABS: GLUCOMETER DEV NAME(LOC) 5S.1B; GLUCOSE,POINT OF CARE 121 MG/DL (70-110)
[2022-08-09] MEDS: HYDROCODONE/ACETAMINOPHEN 5-325 MG TABLET PO PRN ×2 (06:28→19:27)
[2022-08-09 06:48] LABS: BASOPHILS % (AUTO) 0.5 % (0.0-2.0); EOSINOPHILS % (AUTO) 1.5 % (1.0-6.0); HEMATOCRIT 32.9 % (36-46); HEMOGLOBIN 10.8 g/dL (12.0-16.0); LYMPHOCYTES # (AUTO) 1.3 K/uL (1.0-4.8); LYMPHOCYTES % (AUTO) 9.6 % (22.0-44.0); MEAN CORPUSCULAR HEMOGLOBIN 31.7 pg (26.0-34.0); MEAN CORPUSCULAR HGB CONC 32.8 G/dL (31.0-37.0); MEAN CORPUSCULAR VOLUME 97 fL (80-100); MONOCYTES # (AUTO) 0.9 K/uL (0.1-1.0); MONOCYTES % (AUTO) 7.1 % (2.0-9.0); NEUTROPHILS # (AUTO) 10.7 K/uL (1.8-7.7); NEUTROPHILS % (AUTO) 81.3 % (40.0-70.0); PLATELET COUNT (AUTO) 273 K/uL (150-450); RED CELL DISTRIBUTION WIDTH 14.5 % (11.5-14.5)
[2022-08-09 07:56] LABS: GLUCOMETER DEV NAME(LOC) 5S.1B; GLUCOSE,POINT OF CARE 99 MG/DL (70-110)
[2022-08-09] MEDS: AmLODIPine BESYLATE 5 MG TABLET PO SCH ×2 (08:09→20:48)
[2022-08-09] MEDS: CARVEDILOL 3.125 MG TABLET PO SCH ×2 (08:09→20:48)
[2022-08-09] MEDS: HydrALAZINE HCL 25 MG TABLET PO SCH ×3 (08:09→23:20)
[2022-08-09] MEDS: HEPARIN SODIUM,PORCINE 5,000 UNITS/ML VIAL SQ SCH ×3 (08:09→23:20)
[2022-08-09] MEDS: DOCUSATE SODIUM 100 MG/10 ML LIQUID UDCUP NG SCH ×2 (08:09→20:47)
[2022-08-09] MEDS: ASPIRIN 81 MG CHEWABLE TABLET PO SCH (08:09)
[2022-08-09] MEDS: NYSTATIN 15 GM POWDER BOTTLE TP SCH (08:10)
[2022-08-09] MEDS: PANTOPRAZOLE SODIUM 40 MG/VIAL IVP SCH (08:10)
[2022-08-09 12:01] LABS: GLUCOMETER DEV NAME(LOC) 5N.1C; GLUCOSE,POINT OF CARE 84 MG/DL (70-110)
[2022-08-09 20:45] LABS: GLUCOMETER DEV NAME(LOC) 5N.1C; GLUCOSE,POINT OF CARE 99 MG/DL (70-110)
[2022-08-09] MEDS: ATORVASTATIN CALCIUM 20 MG TABLET PO SCH (20:48)
[2022-08-09 21:21] LABS: GLUCOMETER DEV NAME(LOC) 5S.1B; GLUCOSE,POINT OF CARE 121 MG/DL (70-110)
[2022-08-10 04:37] VITALS: BP 138/64
[2022-08-10] MEDS: MORPHINE SULFATE 2 MG/ML SYRINGE IVP PRN (05:29)
[2022-08-10 06:16] LABS: GLUCOMETER DEV NAME(LOC) 5S.1B; GLUCOSE,POINT OF CARE 112 MG/DL (70-110)
[2022-08-10 07:03] VITALS: BP 122/57
[2022-08-10] MEDS: HEPARIN SODIUM,PORCINE 5,000 UNITS/ML VIAL SQ SCH ×3 (08:00→23:31)
[2022-08-10] MEDS: HydrALAZINE HCL 25 MG TABLET PO SCH ×3 (08:00→23:31)
[2022-08-10] MEDS: ASPIRIN 81 MG CHEWABLE TABLET PO SCH (09:00)
[2022-08-10] MEDS: DOCUSATE SODIUM 100 MG/10 ML LIQUID UDCUP NG SCH ×2 (09:00→19:53)
[2022-08-10] MEDS: AmLODIPine BESYLATE 5 MG TABLET PO SCH ×2 (09:00→19:54)
[2022-08-10] MEDS: CARVEDILOL 3.125 MG TABLET PO SCH ×2 (09:00→19:54)
[2022-08-10] MEDS: NYSTATIN 15 GM POWDER BOTTLE TP SCH (09:05)
[2022-08-10] MEDS: PANTOPRAZOLE SODIUM 40 MG/VIAL IVP SCH (10:28)
[2022-08-10 11:14] VITALS: BP 142/68
[2022-08-10] MEDS ORDERED: SODIUM CHLORIDE 0.9% 1,000 ML ONE (13:00)
[2022-08-10] MEDS ORDERED: FentaNYL CITRATE PF 100 MCG/2 ML VIAL ONE (13:07)
[2022-08-10] MEDS ORDERED: MIDAZOLAM HCL 2 MG/2 ML VIAL ONE ×2 (13:07)
[2022-08-10] MEDS: HYDROGEN PEROXIDE 473 ML SOLUTION TP SCH (18:11)
[2022-08-10] MEDS: POVIDONE-IODINE 10% 120 ML SOLUTION TP SCH (18:11)
[2022-08-10 18:46] LABS: GLUCOMETER DEV NAME(LOC) 5S.1B; GLUCOSE,POINT OF CARE 77 MG/DL (70-110)
[2022-08-10 19:33] VITALS: BP 140/83
[2022-08-10] MEDS: ATORVASTATIN CALCIUM 20 MG TABLET PO SCH (19:54)
[2022-08-10 21:01] LABS: GLUCOMETER DEV NAME(LOC) 5S.1B; GLUCOSE,POINT OF CARE 78 MG/DL (70-110)
[2022-08-10 23:27] VITALS: BP 137/66
[2022-08-11] MEDS: MORPHINE SULFATE 2 MG/ML SYRINGE IVP PRN ×3 (03:38→17:30)
[2022-08-11 05:09] VITALS: BP 151/67
[2022-08-11] MEDS ORDERED: PROPOFOL 1% 20 ML VIAL IVP ONE (06:14)
[2022-08-11 06:55] LABS: GLUCOMETER DEV NAME(LOC) 5S.1B; GLUCOSE,POINT OF CARE 106 MG/DL (70-110)
[2022-08-11 07:30] VITALS: BP 142/83
[2022-08-11] MEDS ORDERED: HYDROGEN PEROXIDE 473 ML SOLUTION TP SCH (09:00)
[2022-08-11] MEDS ORDERED: POVIDONE-IODINE 10% 120 ML SOLUTION TP SCH (09:00)
[2022-08-11] MEDS: PANTOPRAZOLE SODIUM 40 MG/VIAL IVP SCH (10:15)
[2022-08-11] MEDS: DOCUSATE SODIUM 100 MG/10 ML LIQUID UDCUP NG SCH ×2 (10:15→20:06)
[2022-08-11] MEDS: HEPARIN SODIUM,PORCINE 5,000 UNITS/ML VIAL SQ SCH ×2 (10:15→17:02)
[2022-08-11] MEDS: AmLODIPine BESYLATE 5 MG TABLET PO SCH ×2 (10:16→20:07)
[2022-08-11] MEDS: HYDROGEN PEROXIDE 473 ML SOLUTION TP SCH (10:16)
[2022-08-11] MEDS: CARVEDILOL 3.125 MG TABLET PO SCH ×2 (10:16→20:07)
[2022-08-11] MEDS: ASPIRIN 81 MG CHEWABLE TABLET PO SCH (10:16)
[2022-08-11] MEDS: HydrALAZINE HCL 25 MG TABLET PO SCH ×2 (10:16→17:02)
[2022-08-11] MEDS: NYSTATIN 15 GM POWDER BOTTLE TP SCH (10:17)
[2022-08-11] MEDS: POVIDONE-IODINE 10% 120 ML SOLUTION TP SCH (10:17)
[2022-08-11 11:25] VITALS: BP 134/63
[2022-08-11 16:35] VITALS: BP 131/81
[2022-08-11 20:00] VITALS: BP 123/67
[2022-08-11] MEDS: ATORVASTATIN CALCIUM 20 MG TABLET PO SCH (20:06)
[2022-08-11 20:11] LABS: GLUCOMETER DEV NAME(LOC) 5S.1B; GLUCOSE,POINT OF CARE 104 MG/DL (70-110)
[2022-08-11 20:11] LABS: GLUCOMETER DEV NAME(LOC) 5N.1C; GLUCOSE,POINT OF CARE 116 MG/DL (70-110)
[2022-08-12] VITALS (7 sets, daily range): BP systolic 103–161; BP diastolic 56–90
[2022-08-12] MEDS: HEPARIN SODIUM,PORCINE 5,000 UNITS/ML VIAL SQ SCH ×3 (00:34→16:09)
[2022-08-12] MEDS: HydrALAZINE HCL 25 MG TABLET PO SCH ×3 (00:34→16:09)
[2022-08-12 07:41] LABS: GLUCOMETER DEV NAME(LOC) 5N.1C; GLUCOSE,POINT OF CARE 110 MG/DL (70-110)
[2022-08-12 07:41] LABS: GLUCOMETER DEV NAME(LOC) 5N.1C; GLUCOSE,POINT OF CARE 111 MG/DL (70-110)
[2022-08-12 07:52] LABS: BASOPHILS % (AUTO) 0.4 % (0.0-2.0); EOSINOPHILS % (AUTO) 1.1 % (1.0-6.0); HEMATOCRIT 32.1 % (36-46); HEMOGLOBIN 10.8 g/dL (12.0-16.0); LYMPHOCYTES # (AUTO) 0.9 K/uL (1.0-4.8); LYMPHOCYTES % (AUTO) 6.3 % (22.0-44.0); MEAN CORPUSCULAR HEMOGLOBIN 32.2 pg (26.0-34.0); MEAN CORPUSCULAR HGB CONC 33.6 G/dL (31.0-37.0); MEAN CORPUSCULAR VOLUME 96 fL (80-100); MONOCYTES # (AUTO) 0.8 K/uL (0.1-1.0); MONOCYTES % (AUTO) 5.5 % (2.0-9.0); NEUTROPHILS # (AUTO) 11.9 K/uL (1.8-7.7); PLATELET COUNT (AUTO) 345 K/uL (150-450); RED BLOOD CELL COUNT(AUTO) 3.34 MIL/uL (4.00-5.20)
[2022-08-12 07:53] LABS: NEUTROPHILS % (AUTO) 86.7 % (40.0-70.0)
[2022-08-12] MEDS: PANTOPRAZOLE SODIUM 40 MG/VIAL IVP SCH (08:09)
[2022-08-12] MEDS: CARVEDILOL 3.125 MG TABLET PO SCH ×2 (08:09→21:13)
[2022-08-12] MEDS: DOCUSATE SODIUM 100 MG/10 ML LIQUID UDCUP NG SCH ×2 (08:09→21:13)
[2022-08-12] MEDS: AmLODIPine BESYLATE 5 MG TABLET PO SCH ×2 (08:10→21:13)
[2022-08-12] MEDS: ASPIRIN 81 MG CHEWABLE TABLET PO SCH (08:10)
[2022-08-12] MEDS: HYDROGEN PEROXIDE 473 ML SOLUTION TP SCH (08:15)
[2022-08-12] MEDS: POVIDONE-IODINE 10% 120 ML SOLUTION TP SCH (08:15)
[2022-08-12] MEDS: NYSTATIN 15 GM POWDER BOTTLE TP SCH (08:15)
[2022-08-12 08:21] LABS: ANION GAP 11 mmol/L (8-16); CALCIUM, TOTAL 9.6 mg/dL (8.8-10.5); CARBON DIOXIDE 25 mmol/L (22-29); CHLORIDE 104 mmol/L (98-107); CREATININE 0.99 mg/dL (0.60-1.30); GLOMERULAR FILTR. RATE CALC > 60 mL/min (>60); GLUCOSE,RANDOM 109 mg/dL (70-110); POTASSIUM 3.8 mmol/L (3.5-5.1); SODIUM SERUM 140 mmol/L (136-145); UREA NITROGEN, BLOOD 28 mg/dL (7-18)
[2022-08-12] MEDS: HydrALAZINE HCL 20 MG/ML VIAL IVP PRN (08:33)
[2022-08-12 12:16] LABS: GLUCOMETER DEV NAME(LOC) 5N.1C; GLUCOSE,POINT OF CARE 109 MG/DL (70-110)
[2022-08-12 17:02] LABS: COVID AG,FIA SOURCE NASAL SWAB
[2022-08-12] MEDS: ATORVASTATIN CALCIUM 20 MG TABLET PO SCH (21:13)
[2022-08-12] MEDS: HYDROCODONE/ACETAMINOPHEN 5-325 MG TABLET PO PRN (21:13)
[2022-08-12 22:11] LABS: GLUCOMETER DEV NAME(LOC) 5N.1C; GLUCOSE,POINT OF CARE 105 MG/DL (70-110)
[2022-08-13] VITALS (7 sets, daily range): BP systolic 112–148; BP diastolic 52–71
[2022-08-13] MEDS: HEPARIN SODIUM,PORCINE 5,000 UNITS/ML VIAL SQ SCH ×3 (00:03→16:00)
[2022-08-13] MEDS: HydrALAZINE HCL 25 MG TABLET PO SCH ×3 (00:03→16:00)
[2022-08-13] MEDS: CARVEDILOL 3.125 MG TABLET PO SCH (07:56)
[2022-08-13] MEDS: PANTOPRAZOLE SODIUM 40 MG/VIAL IVP SCH (07:57)
[2022-08-13] MEDS: ASPIRIN 81 MG CHEWABLE TABLET PO SCH (07:57)
[2022-08-13] MEDS: AmLODIPine BESYLATE 5 MG TABLET PO SCH (07:57)
[2022-08-13] MEDS: POVIDONE-IODINE 10% 120 ML SOLUTION TP SCH (07:58)
[2022-08-13] MEDS: DOCUSATE SODIUM 100 MG/10 ML LIQUID UDCUP NG SCH (07:58)
[2022-08-13] MEDS: NYSTATIN 15 GM POWDER BOTTLE TP SCH (07:58)
[2022-08-13] MEDS: HYDROGEN PEROXIDE 473 ML SOLUTION TP SCH (07:58)
[2022-08-13 22:21] LABS: GLUCOMETER DEV NAME(LOC) 5S.1B; GLUCOSE,POINT OF CARE 104 MG/DL (70-110)
[2022-08-13 22:21] LABS: GLUCOMETER DEV NAME(LOC) 5S.1B; GLUCOSE,POINT OF CARE 108 MG/DL (70-110)
== END 2022-08-13 16:31 | DRG 64 ==
LOC: EMS 11:22 → AHU 18:50 → UNDOADMIN 18:50 → AHU 07-27 15:04 → ICU 07-28 20:42 → 5S 08-02 18:30
PROVIDERS: ADMIT Internal Medicine; ATTEND Internal Medicine
PROC: 0DH63UZ Insertion of Feeding Device into Stomach, Percutaneous Approach (ICD-10-PCS; principal; 2022-08-10 14:15)
DX: I63.511 Cerebral infarction due to unspecified occlusion or stenosis of right middle cerebral artery (principal); E43 Unspecified severe protein-calorie malnutrition; J69.0 Pneumonitis due to inhalation of food and vomit; G93.41 Metabolic encephalopathy; G81.94 Hemiplegia, unspecified affecting left nondominant side; I16.1 Hypertensive emergency; E87.0 Hyperosmolality and hypernatremia; E87.1 Hypo-osmolality and hyponatremia; I48.91 Unspecified atrial fibrillation; I10 Essential (primary) hypertension; D64.9 Anemia, unspecified; R13.10 Dysphagia, unspecified; Z20.822 Contact with and (suspected) exposure to COVID-19; R29.715 NIHSS score 15; R47.02 Dysphasia; Z79.02 Long term (current) use of antithrombotics/antiplatelets; Z79.82 Long term (current) use of aspirin; Z86.73 Personal history of transient ischemic attack (TIA), and cerebral infarction without residual deficits; Z68.23 Body mass index [BMI] 23.0-23.9, adult
CPT/HCPCS: 36245; 36569; 70496; 70498; 71045; 74018; 74230; 76937; 80048; 80053; 80061; 80307; 81001; 82948; 82962; 83735; 84100; 84132; 84443; 84484; 85025; 85610; 85730; 87040; 87081; 92507; 92526; 92610; 92611; 93005; 93306; 93880; 97112; 97162; 97167; 97530; 97535; 99291; C9113; G0378; J0131; J0360; J0690; J1630; J1644; J2250; J2270; J2543; J2704; J3010; J3480; J3490; J7030; J7040; J7050; J7060; Q9967; 36415-L1; 36415-TC; 70450; 70450-TC; Z7610